=== PATIENT | female | born 1975 | race Caucasian/White ===

== ENCOUNTER 2017-09-15 19:15 | Emergency (ER) | payer MEDICAID ==
[~2017-09-15] VITALS: Ht 160 cm; Wt 54.4 kg
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
--- NOTE | 2017-09-15 19:35 | NUR ---
DR. JONES AT BEDSIDE
[2017-09-15] MEDS ORDERED: ONDANSETRON HCL/PF 4 MG/2 ML VIAL ONE (19:46)
[2017-09-15 19:50] LABS: BASOPHILS # (AUTO) 0.1 /CMM (0.0-0.2); EOSINOPHILS # (AUTO) 0.1 /CMM (0.0-0.7); HEMATOCRIT 39 % (33-45); HEMOGLOBIN 13.6 g/dL (11.5-14.8); LYMPHOCYTES % (AUTO) 24.4 % (20.0-44.0); MEAN CORPUSCULAR HEMOGLOBIN 32 PG (26.0-33.0); MEAN CORPUSCULAR HGB CONC 35 g/dl (31.0-36.0); MEAN CORPUSCULAR VOLUME 90 fL (82-100); MONOCYTES # (AUTO) 0.5 /CMM (0.1-1.30); MONOCYTES % (AUTO) 6.6 % (2.0-12.0); NEUTROPHILS # (AUTO) 5.4 /CMM (1.8-8.9); PLATELET COUNT (AUTO) 363 /CMM (150-450); RDW COEFFICIENT OF VARIATION 11.7 (11.5-15.0); RED BLOOD CELL COUNT(AUTO) 4.32 MIL/uL (4.0-5.2); WHITE BLOOD COUNT (AUTO) 8.1 K/uL (4.3-11.0)
[2017-09-15] MEDS: IV NS 0.9% 500 ML BAG IV ONE (19:51)
[2017-09-15] MEDS: ONDANSETRON HCL/PF 4 MG/2 ML VIAL IVP ONE (19:52)
[2017-09-15 20:04] LABS: CREATININE 0.8 mg/dL (0.6-1.3); POTASSIUM 3.2 mmol/L (3.5-5.1)
--- NOTE | 2017-09-15 20:05 | NUR ---
ÓSCAR SIGNED WAIVER. DR. BARBOSA AWARE
[2017-09-15 20:08] LABS: INR 0.94 (0.87-1.13); PROTHROMBIN TIME 9.8 SECS (9.5-12.7)
[2017-09-15 20:10] LABS: ALBUMIN 3.9 g/dL (3.4-5.0); BILIRUBIN,DIRECT 0.1 mg/dL (0.0-0.2); BILIRUBIN,TOTAL 0.4 mg/dL (0.2-1.0); TOTAL PROTEIN, SERUM 7.4 g/dL (6.4-8.2)
--- NOTE | 2017-09-15 20:15 | NUR ---
RADIOLOGY CALLED VIA [facility] AND WAIVER SIGNED. AWAITING RADIOLOGY ARRIVAL
--- NOTE | 2017-09-15 20:21 | NUR ---
RADIOLOGY AT BEDSIDE. AWAITING DEPARTURE TO CT SCAN
[2017-09-15] MEDS ORDERED: IOHEXOL-300 100 ML VIAL IV ONE (20:28)
[2017-09-15] MEDS ORDERED: IV NS 0.9% 250 ML IV ONE (20:28)
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
--- NOTE | 2017-09-15 20:45 | NUR ---
POLICE IN ROOM FOR INTERROGATION
--- NOTE | 2017-09-15 21:25 | NUR ---
PT STATES SHE FEELS BETTER. PAIN IN NECK NOW 11/29
[2017-09-15] MEDS ORDERED: POTASSIUM CHLORIDE 20 MEQ TAB.PRT.SR PO ONE (21:40)
[2017-09-15] MEDS: POTASSIUM CHLORIDE 20 MEQ TAB.PRT.SR PO ONE (21:42)
--- NOTE | 2017-09-15 21:46 | NUR ---
D/C PAPERWORK GIVEN AND EXPLAINED. AGREED WITH CARE
[2017-09-15 21:47] VITALS: BP 151/68
== END 2017-09-15 21:47 | disposition home or self-care (01) ==
LOC: ER 19:17
DX: R10.31 Right lower quadrant pain (principal); M54.2 Cervicalgia; N83.209 Unspecified ovarian cyst, unspecified side; Z88.8 Allergy status to other drugs, medicaments and biological substances; V49.49XA Driver injured in collision with other motor vehicles in traffic accident, initial encounter; Y92.410 Unspecified street and highway as the place of occurrence of the external cause; Y93.89 Activity, other specified; Y99.8 Other external cause status
CPT/HCPCS: 36415; 71010; 74160; 80048; 80076; 85025; 85730; 86850; 96374; 99285; A4606; J2405; J7040; J7050; Q9967; Z7610